=== PATIENT | female | born 1950 | race Native Hawaiian/Other Pacific Islander ===

== ENCOUNTER 2018-05-13 09:06 | Day surgery (SDC) | payer MEDICARE ==
[~2018-05-13] VITALS: Ht 157.5 cm; Wt 57.4 kg
[~2018-05-13 09:06] MED LIST: AMLO10 PO; BLOOD PRESSURE MED; DILT60 PO; FOLI1 PO; HYDACE5 PO; HYDACE5325 PO; LISI20 PO; METO25 PO; NAPR550 PO; OLME20 PO; OLME40 PO; OMEPRAZOLE MAGN20 MG PO; Percocet 5-3251 EACH PO; SOTO80 PO; TRAZ100 PO; TRAZ50 PO; Valtrex1000 MG PO; WARF1 PO; WARF3 PO; WARF5 PO; XARELTO10 MG PO; XARELTO20 MG PO; Z-SLEEP50 MG/30 M PO; [UNRECOGNIZED DRUG - REMARK]
== END 2018-05-13 11:06 | disposition home or self-care (01) ==
LOC: ORSCSDS 09:06
PROVIDERS: Internal Medicine Gastroenterology
PROC: 0DBL8ZX Excision of Transverse Colon, Via Natural or Artificial Opening Endoscopic, Diagnostic (ICD-10-PCS; principal; 2018-05-13 10:00)
DX: Z12.11 Encounter for screening for malignant neoplasm of colon (principal); D12.3 Benign neoplasm of transverse colon; K57.30 Diverticulosis of large intestine without perforation or abscess without bleeding; K64.8 Other hemorrhoids; I10 Essential (primary) hypertension; R73.03 Prediabetes; K21.9 Gastro-esophageal reflux disease without esophagitis; E78.5 Hyperlipidemia, unspecified; I48.0 Paroxysmal atrial fibrillation; F41.8 Other specified anxiety disorders; Z79.899 Other long term (current) drug therapy
CPT/HCPCS: 88305; J2704; J7120

== ENCOUNTER 2018-06-24 17:31 | Inpatient (IN) | payer MEDICARE ==
[~2018-06-24] VITALS: Ht 157.5 cm; Wt 54.9 kg
[2018-06-24 18:22] LABS: BASOPHILS ABSOLUTE AUTO 0.02 K/mm3 (0.00-0.23); BASOPHILS PERCENT AUTO 0 % (0-2); EOSINOPHILS ABSOLUTE AUTO 0.01 K/mm3 (0.00-0.68); EOSINOPHILS PERCENT AUTO 0 % (0-6); Hematocrit 45.1 % (33.0-51.0); Hemoglobin 14.9 g/dL (11.5-16.0); IMMATURE GRAN ABSOLUTE AUTO 0.03 K/mm3 (0.00-0.10); IMMATURE GRAN PERCENT AUTO 0 % (0-1); LYMPHOCYTES ABSOLUTE AUTO 0.59 K/mm3 (0.84-5.20); LYMPHOCYTES PERCENT AUTO 6 % (21-46); MONOCYTES ABSOLUTE AUTO 0.46 K/mm3 (0.16-1.47); MONOCYTES PERCENT AUTO 5 % (4-13); Mean Corpuscular HGB 29.2 pg (26.0-34.0); Mean Corpuscular Volume 88 fL (80-100); Mean Platelet Volume 9.9 fL (9.1-12.4); NEUTROPHILS ABSOLUTE AUTO 9.18 K/mm3 (1.96-9.15); NEUTROPHILS PERCENT AUTO 89 % (41-73); Platelet Count 246 K/mm3 (150-400); RDW Coefficient Variation 16.3 % (11.7-14.2); RDW Standard Deviation 52.5 fL (35.1-46.3); White Blood Cell Count 10.29 K/mm3 (4.00-11.30)
[2018-06-24] MEDS ORDERED: SOTO80 PO (18:33)
[2018-06-24] MEDS ORDERED: ATOR10 PO (18:34)
[2018-06-24 18:51] LABS: Alanine Aminotransfer (ALT/SGP 32 U/L (12-78); Albumin, Blood 4.5 g/dL (3.4-5.0); Alk Phos 102 U/L (50-136); Anion Gap 22 mmol/L (6-16); Aspartate Aminotrans (AST/SGOT 69 U/L (12-37); Bilirubin, Total 1.1 mg/dL (0.1-1.0); Blood Urea Nitrogen 10 mg/dL (8-24); Bun/Creatinine Ratio 15.1 (12.0-20.0); CO2, Blood 18 mmol/L (21-32); Calcium, Blood 8.8 mg/dL (8.5-10.1); Chloride, Blood 98 mmol/L (98-108); Creatinine, Blood 0.66 mg/dL (0.40-1.00); Globulin, Blood 4.5 g/dL (2.2-4.0); Glomerular Filtration Rate >60 (60-); Glucose, Blood 92 mg/dL (70-99); Potassium, Blood 4.3 mmol/L (3.5-5.5); Sodium, Blood 138 mmol/L (136-145); Troponin I 0.064 ng/mL (0.000-0.040)
[2018-06-24] MEDS ORDERED: XARELTO20 MG PO (20:14)
[2018-06-24] MEDS ORDERED: Vitamin D2000 UNIT PO (20:20)
[2018-06-24 23:04] LABS: Source, Urine Clean Catch
[2018-06-24 23:07] LABS: Bilirubin, Urine Neg (Neg); Blood, Urine 2+ (Neg); Glucose Qualitative, Urine Neg (Neg); Ketones, Urine 4+ (Neg); Leukocyte Esterase, Urine Neg (Neg); Nitrite, Urine Neg (Neg); Protein, Urine 2+ (Neg); Urobilinogen, Urine NORM (Normal)
[2018-06-24 23:15] LABS: Appearance, Urine Clear (Clear); Color, Urine Yellow (P-Yellow)
[2018-06-24 23:16] LABS: Bacteria Mod /hpf; Squamous Epithelial Cells Few /hpf (Few)
[2018-06-25 02:08] LABS: Hematocrit 39.9 % (33.0-51.0); Hemoglobin 13.1 g/dL (11.5-16.0); Mean Corpuscular HGB 29.6 pg (26.0-34.0); Mean Corpuscular HGB Conc 32.8 g/dL (31.5-36.5); Mean Corpuscular Volume 90 fL (80-100); Mean Platelet Volume 9.5 fL (9.1-12.4); Platelet Count 199 K/mm3 (150-400); RDW Coefficient Variation 16.4 % (11.7-14.2); RDW Standard Deviation 53.6 fL (35.1-46.3); Red Blood Cell Count 4.43 M/mm3 (3.80-5.20); White Blood Cell Count 9.83 K/mm3 (4.00-11.30)
[2018-06-25 02:27] LABS: Alanine Aminotransfer (ALT/SGP 29 U/L (12-78); Albumin, Blood 3.6 g/dL (3.4-5.0); Alk Phos 85 U/L (50-136); Anion Gap 14 mmol/L (6-16); Aspartate Aminotrans (AST/SGOT 49 U/L (12-37); Bilirubin, Total 0.9 mg/dL (0.1-1.0); Blood Urea Nitrogen 11 mg/dL (8-24); Bun/Creatinine Ratio 17.9 (12.0-20.0); CO2, Blood 21 mmol/L (21-32); CPK Creatine Kinase 131 U/L (26-193); Calcium, Blood 7.4 mg/dL (8.5-10.1); Chloride, Blood 105 mmol/L (98-108); Creatinine, Blood 0.62 mg/dL (0.40-1.00); Globulin, Blood 3.7 g/dL (2.2-4.0); Glomerular Filtration Rate >60 (60-); Glucose, Blood 148 mg/dL (70-99); Magnesium, Blood 1.9 mg/dL (1.6-2.4); Potassium, Blood 4.1 mmol/L (3.5-5.5); Sodium, Blood 140 mmol/L (136-145); Total Protein, Blood 7.3 g/dL (6.4-8.2); Troponin I 0.067 ng/mL (0.000-0.040)
--- NOTE | 2018-06-25 03:32 | NUR ---
SHIFT SUMMARY 2214 RECEIVED PT TO RM 329 VIA GURNEY FROM ER. PT ABLE TO TX SELF TO BED WITH SBA. PT APPEARS WEAK AND MOVES SLOWLY. RECEIVED REPORT THAT PT BROUGHT IN BY EMS D/T N/V SINCE SATURDAY. PT UABLE TO EAT TO KEEP ANYTHING DOWN. C/O BURNING CP ONLY WHEN VOMITING. ADMITTED FOR A-FIB W/RVR. PT C/O MID EPIGASTRIC PAIN "COMING BACK" DURING ADMISSION. JOSE CHUNG NOTIFIED OF PT'S C/O PAIN. NEW ORDERS RECEIVED. PT ABLE TO SLEEP FOR A WHILE, BUT HAS WOKE AGAIN C/O PAIN RETURNING AND BEING UNABLE TO GO BACK TO SLEEP. PAGE TO HOSPITALIST DONE; WAITING FOR RETURN CALL. UA OBTAINED AND SENT PER ORDERS. PT'S IN RM AT BS. CALL LT IN REACH. WILL CONTINUE TO MONITOR.
--- NOTE | 2018-06-25 08:00 | NUR ---
PT PLEASANT COOP A/O. DENIES PAIN, DOES ADMIT BURNING ESOPHAGEAL AREAS. STATES DID CLEAR FOR 3-4 HRS WITH GI COCKTAIL ADMIN IN ER. PASSED INFORMATION TO DR MONTENEGRO. H/R IRREG, NO MURMER NOTED. PER TELE: AFIB AVG 96. LUNGS CLEAR, RESP EASY, UNLABORED. ON R.A. BT X4 LST BM YEST. VOIDS PER SBA BATHROOM. BED IN LOW POSITION, CALL LITE IN REACH, CALLS APPROP
--- NOTE | 2018-06-25 08:53 | NUR ---
Echocardiogram completed.
[2018-06-25 10:33] LABS: Troponin I 0.069 ng/mL (0.000-0.040)
--- NOTE | 2018-06-25 11:36 | NUR ---
SPOKE TO DR MONTENEGRO RE ELEVATED TROPONIN. IS AWARE. ORDERS TO REPEAT IN 6 HOURS. DONE.
--- NOTE | 2018-06-25 12:34 | NUR ---
PER DR MONTENEGRO, STOP IVF DONE
--- NOTE | 2018-06-25 18:11 | NUR ---
REPORTED TROPONIN INCREASE TO DR MONTENEGRO NO NEW ORDERS
--- NOTE | 2018-06-25 18:35 | NUR ---
PT STATES OKAY TO SWALLOW AFTER GI COCKTAIL. STATES BURNING STOPPED. BUT AFTER MOST BITES, WILL BURP AND THAT HURTS AT STERNAL AREA. EATING DOES NOT CAUSE PAIN, BURPING DOES. HAS BEEN GOING ON FOR COUPLE WEEKS. NO OTHER CONCERNS AT THIS TIME. REPORTED TO DR MONTENEGRO. NO NEW ORDERS. BED IN LOW POSITION, CALL LITE IN REACH, CALLS APPROP. HUSB AND DAUGHTER IN ROOM.
--- NOTE | 2018-06-26 04:17 | NUR ---
SHIFT SUMMARY: PT IS ALERT AND ORIENTED. PT IS CALM AND COOPERATIVE WITH CARE. PT CALLS APPROPRIATELY. PT IS A ONE PERSON ASSIST FOR TRANSFERS. FAMILY IN THE ROOM OVERNIGHT. PT REQUESTED SLEEP AIDE, CALLED Ba ESCOBAR AND RECEIVED AN ORDER FOR MELATONIN, GIVEN AND EFFECTIVE. AFIB ON TELE, RATE CONTROLLED IN THE 90'S. PT DENIES PAIN, NAUSEA, VOMITING, AND SOB. NO ACUTE CHANGES OR COMPLICATIONS OVERNIGHT. WILL REPORT TO DAY NURSE.
--- NOTE | 2018-06-26 16:50 | NUR ---
SHIFT SUMMARY THE PATIENT PRESENTED THIS SHIFT WITH VITALS THAT WERE WNL, EXCEPT ELEVATED B/P, A&O X4 AND CLEAR LUNGS. THE PATIENT'S DAUGHTER WAS IN THE ROOM WITH THE PATIENT AND THE PATIENT'S FAMILY HAS BEEN IN THE PATIENT'S ROOM ALL SHIFT. THE PATIENT'S DOCTOR ORDERED TESTS FOR THE PATIENT TOMORROW. THE PATIENT IS TO BE CAFFINE FREE AFTER 0230 AND NPO AFTER BREAKFAST TOMORROW. THE PATIENT IS HAVING A CT NOW, AFTER A NEW IV ACCESS WAS STARTED. WILL CONTINUE TO MONITOR.
--- NOTE | 2018-06-27 04:26 | NUR ---
SHIFT SUMMARY: PT IS ALERT AND ORIENTED. PT IS CALM AND COOPERATIVE WITH CARE. PT CALLS APPROPRIATELY. PT IS A ONE ASSIST FOR TRANSFERS. FAMILY IN THE ROOM OVERNIGHT. PT SLEPT MUCH OF THE NIGHT WHEN NOT DISTURBED. PT DENIES PAIN, NAUSEA, VOMITING, AND SOB. NO ACUTE CHANGES OR COMPLICATIONS THIS SHIFT. BED IN LOW POSITION, CALL LIGHT WITHIN REACH. WILL REPORT TO DAY NURSE.
--- NOTE | 2018-06-27 17:15 | NUR ---
SHIFT SUMMARYTHE PATIENT PRESENTED THIS AM WITH VITALS WNL, A&O X4 AND WITH CLEAR LUNG SOUNDS. THE PATIENT WAS NPO AFTER BREAKFAST AND HAD A NUKE TEST AT 1400 AND THEN LUNCH. THE PATIENT IS SCHEDULED TO BE NPO AFTER MIDNIGHT FOR ANOTHER NUKE TEST AT 0830 IN THE MORNING. THE PATIENT WILL POSSIBLLY BE DISCHARGED HOME TOMORROW AFTER THE TEST. THE PATIENT'S SPOUSE HAS BEEN IN THE ROOM WITH THE PATIENT ALL SHIFT. THE PATIENT IS RESTING AT THIS TIME, WILL CONTINUE TO MONITOR.
[2018-06-28 05:30] LABS: BASOPHILS ABSOLUTE AUTO 0.04 K/mm3 (0.00-0.23); BASOPHILS PERCENT AUTO 1 % (0-2); EOSINOPHILS ABSOLUTE AUTO 0.16 K/mm3 (0.00-0.68); EOSINOPHILS PERCENT AUTO 3 % (0-6); Hematocrit 43.3 % (33.0-51.0); Hemoglobin 14.4 g/dL (11.5-16.0); IMMATURE GRAN ABSOLUTE AUTO 0.02 K/mm3 (0.00-0.10); IMMATURE GRAN PERCENT AUTO 0 % (0-1); LYMPHOCYTES ABSOLUTE AUTO 1.64 K/mm3 (0.84-5.20); LYMPHOCYTES PERCENT AUTO 34 % (21-46); MONOCYTES ABSOLUTE AUTO 0.47 K/mm3 (0.16-1.47); MONOCYTES PERCENT AUTO 10 % (4-13); Mean Corpuscular HGB 29.6 pg (26.0-34.0); Mean Corpuscular HGB Conc 33.3 g/dL (31.5-36.5); Mean Corpuscular Volume 89 fL (80-100); Mean Platelet Volume 10.4 fL (9.1-12.4); NEUTROPHILS ABSOLUTE AUTO 2.45 K/mm3 (1.96-9.15); NEUTROPHILS PERCENT AUTO 51 % (41-73); Platelet Count 164 K/mm3 (150-400); RDW Coefficient Variation 15.4 % (11.7-14.2); RDW Standard Deviation 50.2 fL (35.1-46.3); Red Blood Cell Count 4.87 M/mm3 (3.80-5.20); White Blood Cell Count 4.78 K/mm3 (4.00-11.30)
[2018-06-28 06:00] LABS: Anion Gap 6 mmol/L (6-16); Blood Urea Nitrogen 21 mg/dL (8-24); Bun/Creatinine Ratio 30.4 (12.0-20.0); CO2, Blood 31 mmol/L (21-32); Calcium, Blood 9.1 mg/dL (8.5-10.1); Chloride, Blood 100 mmol/L (98-108); Creatinine, Blood 0.69 mg/dL (0.40-1.00); Glomerular Filtration Rate >60 (60-); Glucose, Blood 102 mg/dL (70-99); Potassium, Blood 3.1 mmol/L (3.5-5.5); Sodium, Blood 137 mmol/L (136-145)
[2018-06-28] MEDS ORDERED: Prinivil10 MG PO (14:29)
[2018-06-28] MEDS ORDERED: OMEPRAZOLE MAGN20 MG PO (14:30)
[2018-06-28] MEDS ORDERED: SIME80CH PO (14:31)
== END 2018-06-28 15:20 | disposition home or self-care (01) | DRG 309 ==
LOC: ER 17:31 → MEDS 17:32 → ER 17:32 → MEDS 17:32
PROVIDERS: Emergency Medicine; Family Medicine; ADMIT Internal Medicine
DX: I48.91 Unspecified atrial fibrillation (principal); Q43.3 Congenital malformations of intestinal fixation; I48.92 Unspecified atrial flutter; I10 Essential (primary) hypertension; I27.20 Pulmonary hypertension, unspecified; I25.119 Atherosclerotic heart disease of native coronary artery with unspecified angina pectoris; Z79.01 Long term (current) use of anticoagulants; E78.5 Hyperlipidemia, unspecified
CPT/HCPCS: 36415; 71045; 71260; 74176; 78452; 80048; 80053; 81001; 82550; 83690; 83735; 84484; 85025; 85027; 87086; 93005; 93010; 93017; 93306; 96361; 96374; 96375; 96376; 99285-25; A9500; G0378; J0706; J1885; J2405; J2785; J7030; Q9967

== ENCOUNTER 2018-08-11 14:30 | Emergency (ER) | payer MEDICARE ==
[~2018-08-11] VITALS: Ht 157.5 cm; Wt 55.0 kg
[~2018-08-11 14:30] MED LIST changes: +ATOR10 PO; +Prinivil10 MG PO; +SIME80CH PO; +Vitamin D2000 UNIT PO
[2018-08-11 15:03] LABS: BASOPHILS ABSOLUTE AUTO 0.03 K/mm3 (0.00-0.23); BASOPHILS PERCENT AUTO 0 % (0-2); EOSINOPHILS ABSOLUTE AUTO 0.28 K/mm3 (0.00-0.68); EOSINOPHILS PERCENT AUTO 4 % (0-6); Hematocrit 39.7 % (33.0-51.0); Hemoglobin 12.5 g/dL (11.5-16.0); IMMATURE GRAN ABSOLUTE AUTO 0.02 K/mm3 (0.00-0.10); IMMATURE GRAN PERCENT AUTO 0 % (0-1); LYMPHOCYTES ABSOLUTE AUTO 1.94 K/mm3 (0.84-5.20); LYMPHOCYTES PERCENT AUTO 29 % (21-46); MONOCYTES ABSOLUTE AUTO 0.48 K/mm3 (0.16-1.47); MONOCYTES PERCENT AUTO 7 % (4-13); Mean Corpuscular HGB Conc 31.5 g/dL (31.5-36.5); Mean Corpuscular Volume 92 fL (80-100); Mean Platelet Volume 9.6 fL (9.1-12.4); NEUTROPHILS ABSOLUTE AUTO 3.93 K/mm3 (1.96-9.15); NEUTROPHILS PERCENT AUTO 59 % (41-73); Platelet Count 309 K/mm3 (150-400); RDW Coefficient Variation 13.9 % (11.7-14.2); RDW Standard Deviation 47.2 fL (35.1-46.3); Red Blood Cell Count 4.31 M/mm3 (3.80-5.20); White Blood Cell Count 6.68 K/mm3 (4.00-11.30)
[2018-08-11 15:27] LABS: Alanine Aminotransfer (ALT/SGP 19 U/L (12-78); Albumin, Blood 3.5 g/dL (3.4-5.0); Albumin/Globulin Ratio 0.9 (0.8-1.8); Alk Phos 86 U/L (50-136); Anion Gap 8 mmol/L (6-16); Aspartate Aminotrans (AST/SGOT 19 U/L (12-37); Bilirubin, Total 0.3 mg/dL (0.1-1.0); Blood Urea Nitrogen 12 mg/dL (8-24); Bun/Creatinine Ratio 18.4 (12.0-20.0); CO2, Blood 28 mmol/L (21-32); Calcium, Blood 8.5 mg/dL (8.5-10.1); Chloride, Blood 108 mmol/L (98-108); Creatinine, Blood 0.65 mg/dL (0.40-1.00); Globulin, Blood 4.1 g/dL (2.2-4.0); Glomerular Filtration Rate >60 (60-); Glucose, Blood 100 mg/dL (70-99); Potassium, Blood 3.4 mmol/L (3.5-5.5); Sodium, Blood 144 mmol/L (136-145); Total Protein, Blood 7.6 g/dL (6.4-8.2); Troponin I 0.017 ng/mL (0.000-0.040)
[2018-08-11 15:33] LABS: Source, Urine Clean Catch
[2018-08-11 15:49] LABS: Bilirubin, Urine Neg (Neg); Blood, Urine Neg (Neg); Glucose Qualitative, Urine Neg (Neg); Ketones, Urine Neg (Neg); Leukocyte Esterase, Urine 3+ (Neg); Nitrite, Urine Neg (Neg); Protein, Urine Neg (Neg); Urobilinogen, Urine NORM (Normal)
[2018-08-11 16:02] LABS: Appearance, Urine Clear (Clear); Color, Urine Yellow (P-Yellow)
[2018-08-11 16:03] LABS: Bacteria Few /hpf; Red Blood Cells, Urine 0-2 /hpf (0-2); Squamous Epithelial Cells Few /hpf (Few)
[2018-08-11] MEDS ORDERED: Bactrim Ds Tab1 EACH PO (17:14)
[2018-08-11] MEDS ORDERED: Norco 5-325 Ta1 EACH PO (17:14)
== END 2018-08-11 17:46 | disposition home or self-care (01) ==
LOC: ER 14:30
PROVIDERS: Physician Assistant
DX: R07.81 Pleurodynia (principal); N39.0 Urinary tract infection, site not specified; Z88.8 Allergy status to other drugs, medicaments and biological substances; I10 Essential (primary) hypertension; I48.91 Unspecified atrial fibrillation; Z79.899 Other long term (current) drug therapy
CPT/HCPCS: 36415; 71046; 80053; 81001; 84484; 85025; 87086; 93005; 93010; 99284-25; A9270-GY

== ENCOUNTER 2019-03-19 10:54 | Emergency (ER) | payer MEDICARE ==
[~2019-03-19] VITALS: Ht 157.5 cm; Wt 65.8 kg
[~2019-03-19 10:54] MED LIST changes: +Bactrim Ds Tab1 EACH PO; +Norco 5-325 Ta1 EACH PO; +XARELTO15 MG PO
[2019-03-19] MEDS ORDERED: CYCL10 PO (11:34)
[2019-03-19] MEDS ORDERED: Voltaren100 GM TOP (11:34)
[2019-03-19] MEDS ORDERED: Norco 5-325 Ta1 EACH PO (11:34)
== END 2019-03-19 11:46 | disposition home or self-care (01) ==
LOC: ER 10:54
DX: M54.5 Low back pain (principal); I10 Essential (primary) hypertension; I48.91 Unspecified atrial fibrillation; Z88.8 Allergy status to other drugs, medicaments and biological substances; Z79.899 Other long term (current) drug therapy
CPT/HCPCS: 99283; A9270-GY

== ENCOUNTER → 2022-06-27 | Outpatient (CLI) | payer MEDICARE ==
[~2022-06-27] MED LIST changes: +CYCL10 PO; +Voltaren100 GM TOP
== END | disposition home or self-care (01) ==
LOC: LAB SHORT 11:20 → LAB 11:20
DX: L08.0 Pyoderma (principal)
CPT/HCPCS: 87070; 87077; 87147; 87186; 87205

== ENCOUNTER 2023-12-10 17:59 | Emergency (ER) | payer MEDICARE, OTHER ==
[~2023-12-10] VITALS: Ht 160 cm; Wt 70.3 kg
[2023-12-10 18:52] LABS: BASOPHILS ABSOLUTE AUTO 0.04 K/mm3 (0.00-0.23); BASOPHILS PERCENT AUTO 1 % (0-2); EOSINOPHILS ABSOLUTE AUTO 0.29 K/mm3 (0.00-0.68); EOSINOPHILS PERCENT AUTO 4 % (0-6); Hematocrit 36.9 % (33.0-51.0); Hemoglobin 12.2 g/dL (11.5-16.0); IMMATURE GRAN ABSOLUTE AUTO 0.01 K/mm3 (0.00-0.10); IMMATURE GRAN PERCENT AUTO 0 % (0-1); LYMPHOCYTES ABSOLUTE AUTO 2.29 K/mm3 (0.84-5.20); LYMPHOCYTES PERCENT AUTO 35 % (21-46); MONOCYTES ABSOLUTE AUTO 0.51 K/mm3 (0.16-1.47); MONOCYTES PERCENT AUTO 8 % (4-13); Mean Corpuscular HGB 30.4 pg (26.0-34.0); Mean Corpuscular HGB Conc 33.1 g/dL (31.5-36.5); Mean Corpuscular Volume 92 fL (80-100); NEUTROPHILS ABSOLUTE AUTO 3.43 K/mm3 (1.96-9.15); NEUTROPHILS PERCENT AUTO 52 % (41-73); Platelet Count 226 K/mm3 (150-400); RDW Coefficient Variation 14.8 % (11.7-14.2); RDW Standard Deviation 49.9 fL (35.1-46.3); Red Blood Cell Count 4.01 M/mm3 (3.80-5.20); White Blood Cell Count 6.57 K/mm3 (4.00-11.30)
[2023-12-10 19:04] LABS: Albumin, Blood 3.2 g/dL (3.4-5.0); Bilirubin, Total 0.2 mg/dL (0.1-1.0); Bun/Creatinine Ratio 15.7 (12.0-20.0); Calcium, Blood 8.5 mg/dL (8.5-10.1); Creatinine, Blood 0.76 mg/dL (0.40-1.00); Globulin, Blood 3.3 g/dL (2.2-4.0); Potassium, Blood 3.8 mmol/L (3.5-5.5); Total Protein, Blood 6.5 g/dL (6.4-8.2)
[2023-12-10 19:15] VITALS: BP 142/80
[2023-12-10 19:18] LABS: Source, Urine Clean Catch
[2023-12-10 19:22] LABS: Appearance, Urine Clear (Clear); Bilirubin, Urine Neg (Neg); Blood, Urine Neg (Neg); Color, Urine Pale Yellow (P-Yellow); Glucose Qualitative, Urine Neg (Neg); Ketones, Urine Neg (Neg); Leukocyte Esterase, Urine Neg (Neg); Nitrite, Urine Neg (Neg); Protein, Urine Neg (Neg); Specific Gravity, Urine 1.005 (1.003-1.022); Urobilinogen, Urine NORM (Normal)
== END 2023-12-10 20:30 | disposition home or self-care (01) ==
LOC: ER 17:59
PROVIDERS: Emergency Medicine; Student in an Organized Health Care Education/Training Program
DX: R55 Syncope and collapse (principal); I10 Essential (primary) hypertension; Z88.8 Allergy status to other drugs, medicaments and biological substances; Z79.02 Long term (current) use of antithrombotics/antiplatelets; Z79.899 Other long term (current) drug therapy
CPT/HCPCS: 80053; 81003; 85025; 93005; 93010; 99284-25

== ENCOUNTER 2024-12-31 02:02 | Emergency (ER) | payer MEDICARE, OTHER ==
[~2024-12-31] VITALS: Ht 165.1 cm; Wt 49.9 kg
[2024-12-31] MEDS ORDERED: NS 1,000 ML IV SCH ×2 (02:10→03:25)
[2024-12-31] MEDS ORDERED: Ondansetron HCl 2 MG / ML 2ML Vial IV ONE (02:10)
[2024-12-31 02:38] LABS: BASOPHILS ABSOLUTE AUTO 0.02 K/mm3 (0.00-0.23); BASOPHILS PERCENT AUTO 0 % (0-2); EOSINOPHILS ABSOLUTE AUTO 0.08 K/mm3 (0.00-0.68); EOSINOPHILS PERCENT AUTO 1 % (0-6); Hematocrit 46.2 % (33.0-51.0); Hemoglobin 15.2 g/dL (11.5-16.0); IMMATURE GRAN ABSOLUTE AUTO 0.02 K/mm3 (0.00-0.10); IMMATURE GRAN PERCENT AUTO 0 % (0-1); LYMPHOCYTES ABSOLUTE AUTO 0.65 K/mm3 (0.84-5.20); LYMPHOCYTES PERCENT AUTO 9 % (21-46); MONOCYTES ABSOLUTE AUTO 0.31 K/mm3 (0.16-1.47); MONOCYTES PERCENT AUTO 4 % (4-13); Mean Corpuscular HGB Conc 32.9 g/dL (31.5-36.5); Mean Corpuscular Volume 91 fL (80-100); NEUTROPHILS ABSOLUTE AUTO 6.00 K/mm3 (1.96-9.15); NEUTROPHILS PERCENT AUTO 85 % (41-73); NRBC ABSOLUTE 0.00 K/mm3 (0.00-0.02); NRBC Auto 0.0 /100 WBC (0.0-0.2); Platelet Count 282 K/mm3 (150-400); RDW Coefficient Variation 15.5 % (11.7-14.2); RDW Standard Deviation 51.5 fL (35.1-46.3)
[2024-12-31 03:08] LABS: Alanine Aminotransfer (ALT/SGP 25.0 U/L (12-78); Albumin, Blood 4.4 g/dL (3.4-5.0); Albumin/Globulin Ratio 1.1 (0.8-1.8); Anion Gap 26.0 mmol/L (3-11); Aspartate Aminotrans (AST/SGOT 35.0 U/L (12-37); Bilirubin, Total 1.3 mg/dL (0.1-1.0); Blood Urea Nitrogen 22.0 mg/dL (8-24); CO2, Blood 17.0 mmol/L (21-32); Calcium, Blood 9.3 mg/dL (8.5-10.1); Chloride, Blood 92.0 mmol/L (98-108); Creatinine, Blood 0.8 mg/dL (0.40-1.00); Ethanol (Alcohol), Blood, Med 20.0 mg/dL; Globulin, Blood 3.9 g/dL (2.2-4.0); Glucose, Blood 71.0 mg/dL (70-99); Magnesium, Blood 2.0 mg/dL (1.6-2.4); Potassium, Blood 3.1 mmol/L (3.5-5.5); Sodium, Blood 132.0 mmol/L (136-145); Total Protein, Blood 8.3 g/dL (6.4-8.2)
[2024-12-31] MEDS ORDERED: Ondansetron Odt8 MG MM (06:02)
[2024-12-31 06:14] VITALS: BP 131/66
== END 2024-12-31 06:16 | disposition home or self-care (01) ==
LOC: ER 02:02
PROVIDERS: Emergency Medicine
DX: R11.2 Nausea with vomiting, unspecified (principal); I10 Essential (primary) hypertension; Z79.899 Other long term (current) drug therapy; Z88.8 Allergy status to other drugs, medicaments and biological substances
CPT/HCPCS: 74177; 80053; 80320; 83605; 83690; 83735; 84484; 85025; 93005; 93010; 96361; 96374-59; 99284-25; J2405; J7030; Q9967